=== PATIENT | female | born 1955 | race Caucasian/White ===

== ENCOUNTER 2022-04-04 10:02 | Emergency (ER) | payer MEDICARE, BC, SELFPAY ==
[2022-04-04 10:26] VITALS: BP 144/82; PULSE 70; RESP 18; TEMP 36.5; O2SAT 96
--- NOTE | 2022-04-04 11:58 | US_ITS ---
Final Report Patient: DEANDRA KWON Facility:?[facility] Patient ID:?[id number] Site Patient ID:?[id number] Site :?[id number] Study:?US Extremity Left -04/04/2022 12:27:34 PM Ordering Physician:?Kamari Falcon Final Report: INDICATION: LLE PAIN AND REDNESS TECHNIQUE: Ultrasound venous duplex left lower extremity. COMPARISON: None. FINDINGS: The left common femoral, superficial femoral, deep femoral, popliteal, posterior tibial, and greater saphenous veins are fully compressible normal waveforms. The contralateral right common femoral vein is also compressible with normal waveform. No masses evident. IMPRESSION: Normal ultrasound of the left lower extremity veins. Dictated by: Edis Atkins MD @ 04/04/2022 12:37:56 (Electronic Signature)
--- NOTE | 2022-04-04 12:53 | ED_ITS ---
HPI - General Adult General Date Seen: 04/04/22 Chief complaint: Extremity Pain/Injury, Lower Stated complaint: Signs of DVT Time Seen by Provider: 04/04/22 10:15 Source: patient Mode of arrival: ambulatory History of Present Illness HPI narrative: Patient is a 67-year-old woman who presents for evaluation of redness and pain of her left lower extremity. She reports that they drove back from [place] yesterday, and when they got back last evening she noted that she had some redness and pain around her left ankle a little bit onto her calf. She has subjective swelling in that area as well. She did some reading online and became concerned about DVT. She does not have any history of DVT, no family history of DVT. No chest pain or shortness of breath. No fevers. No significant past medical history. Related Data Home Medications Medication Instructions Recorded Confirmed No Known Home Medications 04/04/22 04/04/22 Previous Rx's Medication Instructions Recorded cephalexin 500 mg capsule 500 mg PO QID #28 cap 04/04/22 Allergies Allergy/AdvReac Type Severity Reaction Status Date / Time Sulfa (Sulfonamide Allergy Verified 04/04/22 10:36 Antibiotics) Review of Systems Status of ROS: Reports: 10 or more systems reviewed and unremarkable except as noted in History and below PFSH PFS Social History Smoking Status: Never smoker Do you use any of these nicotine containing products: None Second hand tobacco smoke exposure: No How often do you have a drink containing alcohol: 2-3 times a week How many standard drinks containing alcohol do you have on a typical day: 1 or 2 How often do you have six or more drinks on one occasion: Less than monthly AUDIT-C Alcohol total score: 4 Non-prescribed substance use: over the counter (eg: immodium) service: No Exam Const: Vital Signs, click to edit/add: Vital Signs - 24 hr 04/04/22 10:26 Temperature 97.7 F Pulse Rate [Apical ] 70 Respiratory Rate 18 Blood Pressure [Ri ght Upper Arm] 144/82 H Pulse Oximetry 96 Documenting provider has reviewed patient's vital signs: yes Common normals: no apparent distress and oriented x3 General appearance: cooperative and comfortable; not ill appearing Orientation/consciousness: Yes awake, Yes oriented to person and Yes oriented to place HENMT: Common normals: normocephalic and head/scalp atraumatic Head and scalp: normocephalic and atraumatic Eye: Common normals: PERRL General eye: normal appearance of both eyes Pupil: PERRL Neck & C-Spine: Common normals: no lymphadenopathy and supple Resp: Common normals: normal respiratory effort and clear to auscultation bilaterally Auscultation: clear to auscultation bilaterally Cardio: Common normals: regular rate, regular rhythm and no murmurs Rate: regular rate Rhythm: regular rhythm GI: Common normals: soft to palpation and non-tender Palpation: soft Extremity: Other: Right lower extremity is normal in appearance, no edema or erythema. On the le ft, there is erythema around the ankle and lower calf. Mild warmth is noted. No significant tenderness. No fluctuance. No rashes. Distal pulses intact. No edema. Neuro: Common normals: oriented x3 Sensorium/orientation: awake, oriented to person and oriented to place Psych: Common normals: mental status grossly normal, cooperative and affect normal Skin: Common normals: no rashes or lesions noted Narrative: Erythema and warmth as noted above. She has small punctate lesion, perhaps a bug bite, with secondary excoriation on the back of her left calf. General skin exam: no rashes or lesions noted Course Course Hospital Course: Patient had a left lower extremity Doppler which is read by Radiology as negative for DVT. Absent DVT I suspect that this is cellulitis. She is clinically well appearing without any systemic complaints. She does not have any underlying diabetes or health history that would put her at risk for immune suppression. Will treat with oral Keflex at home. She should be seen if no improvement over the next 24-48 hours, return to the ER for acute worsening, significant increased redness, swelling, pain or new symptoms such as fever. Vital Signs Vital signs: Initial Vital Signs Temperature 97.7 F 04/04/22 10:26 Temperature Source Temporal Artery Scan 04/04/22 10:26 Pulse Rate 70 04/04/22 10:26 Respiratory Rate 18 04/04/22 10:26 Blood Pressure 144/82 H 04/04/22 10:26 Blood Pressure Mean 102 04/04/22 10:26 Blood Pressure Position Supine 04/04/22 10:26 Pulse Oximetry 96 04/04/22 10:26 Oxygen Delivery Method 04/04/22 10:26 Vital Signs Temperature 97.7 F 04/04/22 10:26 Pulse Rate 70 04/04/22 10:26 Respiratory Rate 18 04/04/22 10:26 Blood Pressure 144/82 H 04/04/22 10:26 Pulse Oximetry 96 04/04/22 10:26 Temperature 97.7 F 04/04/22 10:26 Pulse Rate 70 04/04/22 10:26 Respiratory Rate 18 04/04/22 10:26 Blood Pressure 144/82 H 04/04/22 10:26 Pulse Oximetry 96 04/04/22 10:26 Discharge Plan Discharge Clinical Impression: Cellulitis of left leg Patient Disposition: Home, Self-Care Condition: Stable Instructions: Cellulitis (ED) Additional Instructions: Antibiotic as prescribed. Elevate leg as able. Recheck with primary care in 48 hours if not significantly improving. Return to the emergency department for significant worsening, new symptoms such as fever, chills, vomiting, or other worsening. Activity Level: Activity as Tolerated Prescriptions: New cephalexin 500 mg capsule 500 mg PO QID Qty: 28 0RF No Action No Known Home Medications 0RF Follow Up/Referrals: Provider,Not a Local [Referring] - Stand Alone [facility] Info Instructions
[2022-04-04 14:26] VITALS: BP 153/79; PULSE 68; RESP 18; TEMP 36.2
== END 2022-04-04 13:15 | disposition home or self-care (01) ==
PROVIDERS: Emergency Provider Emergency Medicine; PCP Physician Assistant Medical
DX: L03.116 Cellulitis of left lower limb (principal)
CPT/HCPCS: 93971; 99283; 99284